=== PATIENT | female | born 1985 | race Asian ===

== ENCOUNTER 2016-10-18 02:12 | Observation (INO) | payer OTHER ==
[2016-10-18] VITALS (7 sets, daily range): BP systolic 79–87; BP diastolic 48–55; PULSE 66–78; TEMP 36.4–36.8; O2SAT 98–100; Ht 160 cm; Wt 50.0 kg
[~2016-10-18] VITALS: Ht 160 cm; Wt 50.0 kg
[~2016-10-18 02:12] MED LIST: ESOM1CAP34 PO; ONDA4TAB7 SL
[2016-10-18] MEDS ORDERED: KETOROLAC TROMETHAMINE 30 MG/ML VIAL IV STA (02:34)
[2016-10-18] MEDS ORDERED: SODIUM CHLORIDE 0.9% 1000ML 1,000 ML IV STA ×2 (02:34→04:33)
[2016-10-18] MEDS ORDERED: ONDANSETRON INJ 2 MG/ML 2 ML VIAL IV STA (02:34)
[2016-10-18 02:45] LABS: BASO % 0.1 %; BASO ABS # 0.02 K/uL (0-0.2); COMPLETE YES; EOS % 0.5 %; HEMATOCRIT 37.7 % (37-47); IG% 0.3 %; LYMPH % 7.8 %; LYMPH ABS # 1.15 K/uL (1.2-3.4); MEAN CELL VOLUME 91.3 fL (80-100); MEAN CORPUSCULAR HEMOGLOBIN 31.5 pg (25-34); MEAN CORPUSCULAR HGB CONC 34.5 g/dl (32-36); MEAN PLATELET VOLUME 9.8 fL (7.4-10.4); MONO % 5.7 %; NEUT % 85.6 %; PLATELET COUNT 289 K/uL (130-400); RED BLOOD COUNT 4.13 M/uL (4.2-5.4); WHITE BLOOD COUNT 14.66 K/uL (4.8-10.8)
[2016-10-18] MEDS ORDERED: OPTIRAY 320 IV PRN (02:45)
[2016-10-18 02:50] LABS: URINE APPEARANCE CLEAR (CLEAR); URINE BILIRUBIN NEG (NEG); URINE COLOR YELLOW; URINE EPITHELIAL CELL AUTO >30 /lpf (0-5); URINE NITRITE NEG (NEG); URINE SPECIFIC GRAVITY 1.024 (1.000-1.030); UROBILINOGEN NEG (NEG); ZZUR CULT IF INDIC CLEAN CATCH NO
[2016-10-18 02:51] LABS: PREG INTERNAL NEGATIVE QC NEG CLEAR BACKGROUND; PREG INTERNAL POSITIVE QC POS CONTROL LINE
[2016-10-18] MEDS ORDERED: ASCO250T4 PO (02:51)
[2016-10-18 02:55] LABS: MANUAL MICROSCOPIC REQUIRED? NO; REVIEW REQ? NO
[2016-10-18 03:04] LABS: BUN/CREATININE RATIO 22.2 (10-20); CALCIUM 8.5 mg/dl (8.5-10.1); CREATININE 0.71 mg/dl (0.60-1.20); POTASSIUM 3.5 mmol/L (3.5-5.1)
[2016-10-18] MEDS ORDERED: LACTATED RINGER'S 1000ML 1,000 ML IV SCH ×2 (06:18→08:00)
--- NOTE | 2016-10-18 06:23 | EMERGENCY ROOM VISIT NOTE ---
History Report prepared by Yaima: Delio Curran Under the Supervision of: Cindy IslasO. First contact with patient: 02:22 Chief Complaint: ABDOMINAL PAIN Stated Complaint: LOWER ABDOMINAL PAIN History of Present Illness The patient is a 31 year old female who presents to the Emergency Room with complaints of constant left lower abdominal pain starting 2100 tonight. The patient states that she has never had anything like this before. She states that her last bowel movement was last night, and she has no history of diverticulitis. The patient states that she is currently on her period, and it has been different than usual. She states that her period has been on and off for about a week now which is unusual. The patient additionally states that she has a history of an appendectomy. She states that her last normal menstrual period was around September 08. Pt denies headache, change in vision, fevers, chest pain, shortness of breath, nausea, vomiting, diarrhea, pain with urination , and melena. Source of History: patient Onset: 2030 Position: abdomen (LLQ) Timing: constant Associated Symptoms: No urinary symptoms Note: Associated symptoms: Abnormal period Review of Systems See HPI for pertinent positives & negatives. A total of 10 systems reviewed and were otherwise negative. Past Medical & Surgical Medical Problems: (1) Ruptured left tubal ectopic causing hemoperitoneum Surgical Problems: (1) History of appendectomy Family History Patient reports no known family medical history. Social History Smoking Status: Never Smoker Marital Status: Housing Status: lives with family Occupation Status: employed Current/Historical Medications Scheduled Ascorbic Acid (Vitamin C), 250 MG PO DAILYBB Scheduled PRN Oxycodone/Acetaminophen 5MG/325MG (Percocet 5MG/325MG), 1-2 TAB PO Q4H PRN for DIETRICH, Cramping, edema Allergies Coded Allergies: No Known Allergies (Unverified , 10/18/16) Physical Exam Vital Signs Date Time Temp Pulse Resp B/P Pulse Ox O2 Delivery O2 Flow Rate FiO2 10/18/16 05:30 76 20 85/52 99 Room Air 10/18/16 04:30 76 20 82/50 97 Room Air 10/18/16 02:15 36.8 95 20 92/66 98 Room Air Physical Exam GENERAL: Sitting up in bed, disheveled, no distress, non-toxic EYE EXAM: normal conjunctiva, PERRL and EOM's grossly intact OROPHARYNX: mucous membranes are moist NECK: supple, no nuchal rigidity, no adenopathy, non-tender LUNGS: Clear to auscultation. Normal chest wall mechanics HEART: no murmurs, S1 normal and S2 normal ABDOMEN: tenderness in the left lower quadrant. Abdomen soft, normo-active bowel sounds, no masses, no rebound or guarding. Pelvic: Normal external genitalia, normal vaginal mucosa with dark blood in the vaginal vault. Unable to visualize the cervix. BACK: Back is symmetrical on inspection and there is no deformity, no midline tenderness, no CVA tenderness. SKIN: no rashes and no bruising UPPER EXTREMITIES: upper extremities are grossly normal. LOWER EXTREMITIES: No pitting edema. NEURO EXAM: Normal sensorium, cranial nerves II-XII grossly intact, normal speech, no gross weakness of arms, no gross weakness of legs. Gross sensation intact Medical Decision & Procedures ER Provider Diagnostic Interpretation: US results have been interpreted by the radiologist and reviewed by me. US OB 1st TRIMESTER: No intrauterine gestational sac is seen. Complex mass in the left adnexa, which appears discrete from the left ovary, measuring 6.3 cm with peripheral vascularity, suspicious for ectopic . In addition, moderate amount of complex free fluid in the pelvis which is concerning for ruptured ectopic. Bilateral intraovarian flow is present. Thickened endometrium. Tiny rounded foci at the uterine fundus, possible fibroids. Laboratory Results 10/18/16 02:34 Red Blood Count 4.13, Mean Corpuscular Volume 91.3, Mean Corpuscular Hemoglobin 31.5, Mean Corpuscular Hemoglobin Concent 34.5, Mean Platelet Volume 9.8, Neutrophils (%) (Auto) 85.6, Lymphocytes (%) (Auto) 7.8, Monocytes (%) (Auto) 5.7, Eosinophils (%) (Auto) 0.5, Basophils (%) (Auto) 0.1, Neutrophils # (Auto) 12.53, Lymphocytes # (Auto) 1.15, Monocytes # (Auto) 0.84, Eosinophils # (Auto) 0.07, Basophils # (Auto) 0.02 10/18/16 02:34 Test 10/18/16 02:34 10/18/16 02:35 White Blood Count 14.66 K/uL (4.8-10.8) Red Blood Count 4.13 M/uL (4.2-5.4) Hemoglobin 13.0 g/dL (12.0-16.0) Hematocrit 37.7 % (37-47) Mean Corpuscular Volume 91.3 fL (80-100) Mean Corpuscular Hemoglobin 31.5 pg (25-34) Mean Corpuscular Hemoglobin Concent 34.5 g/dl (32-36) Platelet Count 289 K/uL (130-400) Mean Platelet Volume 9.8 fL (7.4-10.4) Neutrophils (%) (Auto) 85.6 % Lymphocytes (%) (Auto) 7.8 % Monocytes (%) (Auto) 5.7 % Eosinophils (%) (Auto) 0.5 % Basophils (%) (Auto) 0.1 % Neutrophils # (Auto) 12.53 K/uL (1.4-6.5) Lymphocytes # (Auto) 1.15 K/uL (1.2-3.4) Monocytes # (Auto) 0.84 K/uL (0.11-0.59) Eosinophils # (Auto) 0.07 K/uL (0-0.5) Basophils # (Auto) 0.02 K/uL (0-0.2) RDW Standard Deviation 42.8 fL (36.4-46.3) RDW Coefficient of Variation 12.7 % (11.5-14.5) Immature Granulocyte % (Auto) 0.3 % Immature Granulocyte # (Auto) 0.05 K/uL (0.00-0.02) Anion Gap 10.0 mmol/L (3-11) Est Creatinine Clear Calc Drug Dose 90.4 ml/min Estimated GFR () 129.7 Estimated GFR (Non- 111.9 BUN/Creatinine Ratio 22.2 (10-20) Calcium Level 8.5 mg/dl (8.5-10.1) Total Bilirubin 0.9 mg/dl (0.2-1) Direct Bilirubin 0.2 mg/dl (0-0.2) Aspartate Amino Transf (AST/SGOT) 15 U/L (15-37) Alanine Aminotransferase (ALT/SGPT) 22 U/L (12-78) Alkaline Phosphatase 30 U/L (45-117) Total Protein 6.9 gm/dl (6.4-8.2) Albumin 3.5 gm/dl (3.4-5.0) Lipase 171 U/L (73-393) Urine Color YELLOW Urine Appearance CLEAR (CLEAR) Urine pH 7.0 (4.5-7.5) Urine Specific Mineral 1.024 (1.000-1.030) Urine Protein NEG (NEG) Urine Glucose (UA) NEG (NEG) Urine Ketones NEG (NEG) Urine Occult Blood 3+ (NEG) Urine Nitrite NEG (NEG) Urine Bilirubin NEG (NEG) Urine Urobilinogen NEG (NEG) Urine Leukocyte Esterase TRACE (NEG) Urine WBC (Auto) 1-5 /hpf (0-5) Urine RBC (Auto) >30 /hpf (0-4) Urine Hyaline Casts (Auto) 1-5 /lpf (0-5) Urine Epithelial Cells (Auto) >30 /lpf (0-5) Urine Bacteria (Auto) NEG (NEG) Urine Test POS (NEG) Human Chorionic Gonadotropin, Quant 2531 mIU/mL Laboratory results per my review. Medications Administered Medications (Trade) Dose Ordered Sig/Shahrzad Route Start Time Stop Time Status Last Admin Dose Admin Sodium Chloride (Nss 1000ml) 1,000 ml @ 999 mls/hr Q1H1M STAT IV 10/18/16 02:34 10/18/16 03:34 DC 10/18/16 02:52 999 MLS/HR Ondansetron HCl (Zofran Inj) 4 mg NOW STAT IV 10/18/16 02:34 10/18/16 02:35 DC 10/18/16 02:52 4 MG Ketorolac Tromethamine 30 mg 30 mg NOW STAT IV 10/18/16 02:34 10/18/16 02:35 DC 10/18/16 02:53 30 MG Sodium Chloride (Nss 1000ml) 1,000 ml @ 999 mls/hr Q1H1M STAT IV 10/18/16 04:33 10/18/16 05:33 DC 10/18/16 04:38 999 MLS/HR ED Course ED COURSE: Vital signs were reviewed and showed hypotension The patients medical record was reviewed The above diagnostic studies were performed and reviewed. ED treatments and interventions as stated above. 0229: The patient was evaluated in room B5. A complete history and physical examination was performed. 0234: Toradol Inj 30mg IV, Zofran Inj 4mg IV, Sodium Chloride 1000 ml @ 999 mls/ hr IV 0432: Upon review of the patient's chart, her blood pressure ranges systolically from 80-102 from during [id number] 0433: Sodium Chloride 1000 ml @ 999 mls/hr IV 0533: I discussed the patient's case with Dr. Henley, RACE ENGINE BUILDER. He is going to evaluate the patient for further treatment 0535: Upon reevaluation, the patient is resting.I discussed my findings with the patient and she understands and agrees with the treatment plan. Based on the patients age, coexisting illnesses, exam and lab findings the decision to treat as an inpatient was made. The patient remained stable while under my care. The patient will be evaluated for further management. 0550: I reevaluated the patient, and Dr. Henley was at bedside. Medical Decision Differential diagnoses includes but is not limited to gastritis, peptic ulcer disease, GERD, gallbladder disease, pancreatitis, small bowel obstruction, acute coronary syndrome, pericarditis, ischemic bowel, irritable bowel disease, irritable bowel syndrome, appendicitis, diverticulitis, malignancy, hernia, urinary tract infection, torsion, /ectopic , perforation, trauma, infectious. Patient is a 31-year-old female who presents the ER for left lower quadrant abdominal pain. Labs and old child were obtained. Urine was positive. Ultrasound shows free fluid in the pelvis associated with 6 cm mass separate to left ovary. Her vitals showed that she was hypotensive. Upon presentation systolic blood pressures were in the 90s dropped into the 80s. Her heart rate was never tachycardic. Upon review of her previous presentations systolic blood pressures were always in the 90s. Hemoglobin was 13. She was given 2 L normal saline. RACE ENGINE BUILDER was called immediately following ultrasound results. Patient remained hemodynamic stable in the ER. She was typed and crossed. She was not given RhoGAM in the ER has that type and cross was pending. Patient and family were updated at bedside. Patient was taken to the OR by BEAM WORKER. Consults Time Called: 530 Consulting Physician: Dr. Henley, RACE ENGINE BUILDER Returned Call: 532 I discussed the patient's case with Dr. Henley, RACE ENGINE BUILDER. He is going to evaluate the patient for further treatment Impression Primary Impression: Ruptured left tubal ectopic causing hemoperitoneum Scribe Attestation The scribe's documentation has been prepared under my direction and personally reviewed by me in its entirety. I confirm that the note above accurately reflects all work, treatment, procedures, and medical decision making performed by me. Departure Information Dispostion Being Evaluated By Hospitalist Prescriptions Oxycodone/Acetaminophen 5MG/325MG (PERCOCET 5MG/325MG) Tab 1-2 TAB PO Q4H Y for DIETRICH, Cramping, edema for 7 Days, #30 TAB PAIN Prov: Margo Shepard, D.O. 10/18/16 Referrals Diana Romo DO (PCP)
[2016-10-18] MEDS ORDERED: BUPIVACAINE 0.5 % 5 MG/1 ML MPF 30ML VIAL ONE (06:29)
[2016-10-18] MEDS ORDERED: FENTANYL CITRATE INJ 50 MCG/1 ML 2 ML VIAL ONE ×2 (06:30)
[2016-10-18] MEDS ORDERED: MIDAZOLAM HCL 1 MG/ML 2ML VIAL ONE (06:32)
--- NOTE | 2016-10-18 06:43 | HISTORY & PHYSICAL EXAMINATION ---
DATE OF ADMISSION: 10/18/2016 ADMITTING DIAGNOSES: Probable ruptured ectopic . ADMISSION HISTORY: The patient is a 31-year-old 3, para 2, at approximately 5 weeks gestational age, who presented to the Emergency Room with left lower quadrant pain. The patient states that the pain began at approximately 9:00 p.m. the evening prior to presentation and increased in intensity. She denies nausea or vomiting. The patient states that she was approximately a week late for her period and that her breasts were more tender. The patient is sexually active, not using any form of contraception. In the Emergency Room, the patient had a positive test and ultrasound showed findings consistent with a ruptured ectopic and I have been asked to see the patient in consultation. The patient has had 2 previous uneventful vaginal deliveries in 2002 and 2010. She had an appendectomy done in 2012. PAST MEDICAL HISTORY: OBSTETRICAL: As above. GYNECOLOGICAL: As above. MEDICAL: Mild reactive airways disease. SURGICAL: As above. ALLERGIES: No known drug allergies. SOCIAL HISTORY: No smoking. FAMILY HISTORY: Noncontributory. REVIEW OF SYSTEMS: As per HPI. ADMISSION PHYSICAL EXAMINATION: GENERAL: Shows an female, uncomfortable, but in no acute distress. VITAL SIGNS: Show blood pressure of 92/66 and a pulse of 76. HEENT: Unremarkable. NECK: Supple. LUNGS: Clear. HEART: With a regular rhythm and rate. ABDOMEN: Tender in left lower quadrant with guarding and rebound, diminished bowel sounds. PELVIC: Shows normal external genitalia. Vaginal vault is pink and rugated. There is blood in the posterior fornix. Cervix is multiparous and closed with positive cervical motion tenderness. On bimanual exam, there is marked left adnexal tenderness with a suboptimal examination, secondary to patient guarding. RECTAL: Confirmatory. EXTREMITIES: Shows no deep calf tenderness. NEUROLOGIC: Grossly intact. IMPRESSION: A 31-year-old 3, para 2, AB 1, with probable ruptured ectopic . PLAN: The diagnosis has been explained to the patient and the need for operative intervention has been discussed. Plan a laparoscopic approach with evacuation of probable hemoperitoneum and decision on whether or not any of the adnexal structures can be preserved or removal of the left tube. The risks, benefits and alternatives to the surgery have been discussed. While the benefits will be the treatment of ectopic , the risks are bleeding, infection, inadvertent injury to bowel or bladder or failure to be able to complete the surgery laparoscopically and the need for an open procedure. The patient understands. Permit has been signed, if she wishes to proceed.
[2016-10-18] MEDS ORDERED: IV FLUIDS COMPLETED PRN (06:45)
[2016-10-18] MEDS ORDERED: LIDOCAINE HCL 2% 2 ML VIAL (20MG/ML) ONE (07:23)
[2016-10-18] MEDS ORDERED: PROPOFOL IV EMULSION 10 MG/ML 20 ML VIAL IV ONE (07:23)
[2016-10-18] MEDS ORDERED: ROCURONIUM BROMIDE 10 MG/ML 5 ML VIAL ONE (07:24)
[2016-10-18] MEDS ORDERED: ONDANSETRON INJ 2 MG/ML 2 ML VIAL ONE (07:24)
[2016-10-18] MEDS ORDERED: GLYCOPYRROLATE INJ 0.2 MG/ML VIAL ONE ×2 (07:25)
[2016-10-18] MEDS ORDERED: NEOSTIGMINE METHYLSULFATE 5 MG/5 ML SYR ONE (07:25)
--- NOTE | 2016-10-18 07:33 | DIAGNOSTIC IMAGING REPORT ---
EXAMINATION: PELVIC ULTRASOUND CLINICAL HISTORY: ll. Abd pain PAIN COMPARISON STUDY: 10/04/2010 FINDINGS: The uterus measured 10 cm maximum linear dimension. Several small uterine fibroids measuring up to 1.5 cm. Endometrial thickening at 1.3 cm. No well-defined intrauterine gestational sac. . The endometrial stripe measured 1.3 cm at maximum. The right ovary measured 4 cm maximum linear dimension. Normal vascular flow. The left ovary measured 6.3 cm. complex. Surrounding free and/or slightly complex fluid. Possibility of an ectopic is considered.. There is no ultrasonographic evidence of ovarian torsion. It should be noted that ovarian torsion can be present with normal Doppler ultrasonographic findings. IMPRESSION: 1. No evidence for an intrauterine gestational sac. 2. Enlarged masslike appearance to the left ovary with a maximum dimension of 6 cm. Enhancement of peripheral increase in vascularity. 3. Possibility of an ectopic with a potential partial rupture must be considered Electronically signed by: Kenney Bailey M.D. 10/18/2016 7:32 AM Dictated Date/Time: 10/18/2016 7:18 AM
[2016-10-18] MEDS ORDERED: ONDANSETRON INJ 2 MG/ML 2 ML VIAL IV PRN ×2 (07:45→08:00)
[2016-10-18] MEDS ORDERED: HYDROmorphone INJ 1 MG/ML SYR IV PRN (07:45)
[2016-10-18] MEDS ORDERED: PROMETHAZINE HCL INJ 6.25 MG in SODIUM CHLORIDE 0.9% 50ML 50 ML IV PRN (07:45)
[2016-10-18] MEDS ORDERED: EpHEDrine SULFATE INJ 50 MG/ML AMP IV PRN (07:45)
[2016-10-18] MEDS ORDERED: FENTANYL CITRATE INJ 50 MCG/1 ML 2 ML VIAL IV PRN (07:45)
[2016-10-18] MEDS ORDERED: ATROPINE SULFATE 0.1 MG/ML 5ML SYR IV PRN (07:45)
[2016-10-18] MEDS ORDERED: KETOROLAC TROMETHAMINE 30 MG/ML VIAL ONE (07:50)
[2016-10-18] MEDS ORDERED: OXYCODONE/ACETAMINOPHEN 5-325 TAB PO PRN (08:00)
[2016-10-18] MEDS ORDERED: MEPERIDINE HCL 50 MG/ML CARP IV PRN (08:00)
[2016-10-18] MEDS ORDERED: IBUPROFEN 600 MG TAB PO PRN (08:00)
[2016-10-18] MEDS ORDERED: KETOROLAC TROMETHAMINE 30 MG/ML VIAL IV. PRN (08:00)
[2016-10-18] MEDS ORDERED: MEPERIDINE HCL 75 MG/ML CARP IV PRN (08:00)
--- NOTE | 2016-10-18 08:08 | [facility] Post Operative Brief Note ---
Immediate Operative Summary Operative Date Oct 18, 2016. Pre-Operative Diagnosis Probable Ruptured Ectopic Post-Operative Diagnosis Left Ectopic Procedure(s) Performed Diagnostic Laparoscopy; Left Salpingectomy Surgeon Dr. Rajendra Henley Avionics Integration Engineer Surgeon(s) None Estimated Blood Loss 250ML Findings Large dilated left tube, with bleeding from surface. Normal appearing Right tube and ovary. Left salpingectomy performed Fluids (cc crystalloids) 750 Specimens A. Left Fallopian Tube Drains None Anesthesia General Complication(s) None Disposition Recovery Room / PACU
[2016-10-18] MEDS ORDERED: MEPERIDINE HCL 25 MG/ML CARP ONE (08:35)
[2016-10-18] MEDS ORDERED: NURSING VERBAL MED ORDER ONE (08:45)
--- NOTE | 2016-10-18 08:50 | OPERATIVE REPORT ---
DATE OF OPERATION: 10/18/2016 PREOPERATIVE DIAGNOSIS: Probable ruptured left ectopic . POSTOPERATIVE DIAGNOSIS: Left ectopic . PROCEDURE PERFORMED: 1. Diagnostic laparoscopy. 2. Left salpingectomy. SURGEON: Dr. Henley. ANESTHESIA: General. FINDINGS: Laparoscopic examination of the pelvis showed approximately 250 mL of clotted and unclotted blood in the cul-de-sac and after aspiration the left fallopian tube was markedly dilated and hemorrhagic approximately 6 cm x 4 cm in dimension. While the tube was not ruptured there was some active bleeding from the surface of the tube, necessitating left salpingectomy. Specimen sent for pathological evaluation. PROCEDURE IN DETAIL: The patient was taken to the operating room and after general anesthesia was placed in dorsolithotomy position and draped and prepped in the usual fashion. Luciano catheter was inserted into the bladder which remained there throughout the procedure. A single tooth tenaculum was used to grasp the anterior lip of the cervix. Greasy cannula was inserted into the cervical os and fastened to the tenaculum. Small subumbilical incision was made and Veress needle was introduced into the pelvic cavity which was then insufflated with 3 liters of CO2. Veress needle was removed and sharp trocar was used to introduce the laparoscope. Pelvic organs were visualized with the description as above, a 5 mm suprapubic port was placed and an 11 mm left paramedial port was placed. Pelvis with the description as above. The tube was grasped. Ureter was identified. Using the Harmonic scalpel a left salpingectomy was performed. Specimen was placed in an EndoCatch bag and removed and sent for pathological evaluation. The pelvis was thoroughly irrigated with 500 mL of warm saline. All pedicles were inspected for hemostasis, which was present. The laparoscopic ports were removed under direct laparoscopic guidance. The pneumoperitoneum was allowed to escape. Deep stitches on the 11 mm ports of 0 Vicryl were placed closing the fascia. The skin incisions were closed with 4-0 Vicryl subcuticular stitches. Sterile dressings were applied. Luciano catheter, tenaculum and acorn cannula were removed. The patient taken out of dorsal lithotomy to recovery room in satisfactory condition. I attest to the content of the Intraoperative Record and any orders documented therein. Any exceptio ns are noted below.
--- NOTE | 2016-10-18 08:59 | Anesthesiology Progress Note ---
Anesthesia Post Op Note Date & Time Oct 18, 2016 at 09:00 Vital Signs Pain Intensity: 0 Vital Signs Past 12 Hours Date Time Temp Pulse Resp B/P Pulse Ox O2 Delivery O2 Flow Rate FiO2 10/18/16 08:54 61 15 10/18/16 08:54 60 15 92/55 97 10/18/16 08:49 66 14 85/50 95 10/18/16 08:49 67 14 10/18/16 08:44 64 18 10/18/16 08:44 63 18 94/58 98 10/18/16 08:40 92/46 10/18/16 08:39 95 29 10/18/16 08:39 97 29 96 10/18/16 08:34 71 22 10/18/16 08:34 75 22 92/55 100 10/18/16 08:29 60 16 91/54 100 10/18/16 08:29 59 16 10/18/16 08:24 61 19 93/62 100 10/18/16 08:24 62 19 10/18/16 08:19 86 20 10/18/16 08:19 90 20 88/63 93 10/18/16 08:16 92/62 10/18/16 08:14 87 22 10/18/16 08:14 86 22 10/18/16 08:14 36.7 79 16 92/62 99 Mask 10 10/18/16 06:33 104 20 95/66 98 10/18/16 05:30 76 20 85/52 99 Room Air 10/18/16 04:30 76 20 82/50 97 Room Air 10/18/16 02:15 36.8 95 20 92/66 98 Room Air Notes Mental Status: alert / awake / arousable, participated in evaluation Pt Amnestic to Procedure: Yes Nausea / Vomiting: adequately controlled Pain: adequately controlled Airway Patency, RR, SpO2: stable & adequate BP & HR: stable & adequate Hydration State: stable & adequate Anesthetic Complications: no major complications apparent
[2016-10-18] MEDS ORDERED: OXYC-57 PO (11:59)
--- NOTE | 2016-10-18 12:01 | Discharge Instructions ---
Discharge Instructions Visit Reason for Visit: Ruptured Left Tubal Ectopic Preg. / Hemoperitoneum Discharge Discharge Diagnosis / Problem: s/p left salpingectomy Discharge Goals Goal(s): Therapeutic intervention Activity Recommendations Activity Limitations: per Instructions/Follow-up section Anesthesia . Post Anesthesia Instructions: If you have had General Anesthesia or IV Sedation: * Do not drive today. * Resume driving when surgeon permits. * Do not make important decisions or sign legal documents today. * Call surgeon for: 1. Temperature elevations greater than 101 degrees F. 2. Uncontrollable pain. 3. Excessive bleeding. 4. Persistent nausea and vomiting. 5. Medication intolerance (nausea, vomiting or rash). * For nausea and vomiting use only clear liquids such as: tea, soda, bouillon until nausea subsides, then gradually increase diet as tolerated. * If you have any concerns or questions, call your surgeon's office. If physician is unavailable and it is an emergency, call 911 or go to the nearest emergency room. . Instructions / Follow-Up Instructions / Follow-Up ACTIVITY RECOMMENDATIONS: * Rest the first 2-3 days. You should be back to your normal activity levels by day 3. * No heavy lifting for 2 weeks. * No intercourse, tampons or douching for 1-2 weeks. * You may shower the next day. * Do not drive anytime that you are taking narcotic pain medicines. RETURN TO SCHOOL/WORK: * May return to school or work after 2-3 days. DIET: Nausea may occur in the immediate post-operative period. If so, take clear liquids such as tea, bouillon, apple juice until all nausea has subsided, then resume usual diet. MEDICATIONS: Resume previous medications unless instructed otherwise by your surgeon. Ibuprofen 200mg 2-3 tablets every 4-6 hours as needed -- OR -- Aleve 2 tablets every 8-12 hours as needed for post-operative discomfort Medications are over the counter. Tylenol may be used if above medications are contraindicated or not preferred. Medication should be taken with food or milk. Do not take on an empty stomach. SPECIAL CARE INSTRUCTIONS: * Check temperature twice daily for one week. report any elevation over 101 degrees. * You may experience some vagina spotting and/or bleeding. This is normal for 1 -2 weeks and should not be heavier than a normal period. If it is unusual in amount, call your physician. * Post-operative discomfort may consist of a sore throat, a "bloated" feeling and pain in the shoulders. these are normal symptoms, which usually only last for 2-3 days. * Remove band-aids tomorrow and shower. There is no need to replace band-aids unless there is drainage or discomfort. FOLLOW UP VISIT: Call your doctor's office for a post-operative 2 week visit if not already scheduled. Diet Recommendations Recommended Home Diet: resume previous diet Procedures Procedures Performed: Diagnostic Laparoscopy; Left Salpingectomy Pending Studies Studies pending at discharge: no Medical Emergencies . Who to Call and When: Medical Emergencies: If at any time you feel your situation is an emergency, please call 911 immediately. . Non-Emergent Contact Non-Emergency issues call your: Primary Care Provider, Die Set Up Worker . . "Provider Documentation" section prepared by Margo Shepard.
--- NOTE | 2016-10-18 12:19 | Progress Note ---
Progress Note Date of Service Oct 18, 2016. Progress Note Patient feeling well. Ambulating. Tolerating PO. Urinating ok. Pain well controlled. Would like to go home. Last 8 Hrs Date Time Temp Pulse Resp B/P Pulse Ox O2 Delivery O2 Flow Rate FiO2 10/18/16 10:20 68 16 85/54 100 Room Air 10/18/16 10:13 36.4 78 16 84/53 100 Room Air 10/18/16 09:50 74 16 79/48 100 Room Air 10/18/16 09:20 100 Room Air 10/18/16 09:20 100 Room Air 10/18/16 09:20 36.4 78 16 84/53 100 Room Air 10/18/16 09:08 37.0 10/18/16 09:05 62 15 97 10/18/16 09:05 62 15 10/18/16 09:04 89/50 10/18/16 09:00 68 20 10/18/16 09:00 69 20 97 10/18/16 08:59 87/52 10/18/16 08:55 61 16 10/18/16 08:55 60 16 96 10/18/16 08:54 61 15 10/18/16 08:54 60 15 92/55 97 10/18/16 08:49 66 14 85/50 95 10/18/16 08:49 67 14 10/18/16 08:44 64 18 10/18/16 08:44 63 18 94/58 98 10/18/16 08:40 92/46 10/18/16 08:39 95 29 10/18/16 08:39 97 29 96 10/18/16 08:34 71 22 10/18/16 08:34 75 22 92/55 100 10/18/16 08:29 60 16 91/54 100 10/18/16 08:29 59 16 10/18/16 08:24 61 19 93/62 100 10/18/16 08:24 62 19 10/18/16 08:19 86 20 10/18/16 08:19 90 20 88/63 93 10/18/16 08:16 92/62 10/18/16 08:14 87 22 10/18/16 08:14 86 22 10/18/16 08:14 36.7 79 16 92/62 99 Mask 10 10/18/16 06:33 104 20 95/66 98 3/1/17 05:30 76 20 85/52 99 Room Air 10/18/16 04:30 76 20 82/50 97 Room Air Physical exam: Gen: AAOx3 NAD. Sitting up, eating. Abdomen: soft, NTTP. incision sites bandaged, no bleeding. Ext: no edema, no calf tenderness Will discharge to home. Rx percocet. Discharge instructions discussed, questions answered. JAMEL PDMP checked. Followup with Dr Henley in 2 weeks in office.
[2016-10-19] MEDS ORDERED: ASCORBIC ACID 500 MG TAB PO SCH (07:00)
--- NOTE | 2016-10-19 11:19 | DISCHARGE SUMMARY ---
ADMITTING DIAGNOSIS: Probable ruptured ectopic . DISCHARGE DIAGNOSIS: Left tubal ectopic . PROCEDURES PERFORMED: 1. Diagnostic laparoscopy. 2. Left salpingectomy. DISCHARGE MEDICATION: Percocet 5/325 one to two p.o. q. 4-6 hours p.r.n. pain. ADMISSION HISTORY: The patient is a 31-year-old 3, para 2 at approximately 5 weeks' gestational age, who presented to the Emergency Room on the day of admission with left lower quadrant pain. The patient states the pain began approximately 9:00 p.m. the evening prior to presentation with had increased in intensity. She denied nausea or vomiting. The patient was approximately a week later for her menses and her breasts were more tender. The patient is sexually active and not using any forms of contraception. In the Emergency Room, the patient had a positive test and ultrasound showed the findings consistent with ruptured ectopic . ADMISSION PHYSICAL EXAMINATION: GENERAL: Showed female, uncomfortable, but in no acute distress. VITAL SIGNS: Blood pressure of 92/66 and a pulse of 76. HEENT: Unremarkable. NECK: Supple. LUNGS: Clear. HEART: With a regular rhythm and rate. ABDOMEN: Tender in the left lower quadrant with guarding and rebound. Diminished bowel sounds. PELVIC: Showed normal external genitalia. The vaginal wall is pink and rugated. There is blood in the posterior fornix. Cervix was multiparous and closed with positive cervical motion tenderness. On bimanual examination, there was marked left adnexal tenderness with a suboptimal examination secondary to the patient's guarding. RECTAL: Confirmatory. EXTREMITIES: Showed no deep calf tenderness. NEUROLOGIC: Grossly intact. ADMISSION LABORATORY VALUES: Showed an H\T\H of 13.0 and 37.3. Quantitative hCG of 2500. HOSPITAL COURSE: The patient was felt to have an ectopic and with the pain that she was experiencing, the possibility of rupture was entertained. She was taken to the operating room, where she underwent a diagnostic laparoscopy. Laparoscopic findings showed approximately 250 mL of clotted and unclotted blood in the cul-de-sac. The left fallopian tube was markedly dilated with hemorrhage from the surface, but we had not ruptured. It was approximately 6 x 4 cm in dimension. While the tube was not ruptured, there was some active bleeding from the surface of the tube, necessitating a left salpingectomy. Postoperatively, the patient did well. She was observed for approximately 6 hours postoperatively. She was tolerating a regular diet and was discharged home with the prescriptions for the medications that were listed as above. She will follow up in the office in 2 weeks' time for a postoperative check, but as always she has been instructed to call with any questions, problems or difficulties.
== END 2016-10-18 13:20 | disposition home or self-care (01) ==
LOC: ENRESERVTM → ENRESERVDT → C.EDB 02:13 → C.OR 06:18 → C.MS4N 06:22 → C.OR 06:37
PROVIDERS: ADMIT Obstetrics & Gynecology; ATTEND Obstetrics & Gynecology
DX: O08.0 Genital tract and pelvic infection following ectopic and molar pregnancy (principal); O08.1 Delayed or excessive hemorrhage following ectopic and molar pregnancy; N83.8 Other noninflammatory disorders of ovary, fallopian tube and broad ligament; Z3A.01 Less than 8 weeks gestation of pregnancy

== ENCOUNTER 2021-08-22 01:59 | Inpatient (IN) ==
[2021-08-22] MEDS ORDERED: LACTATED RINGER'S 1,000 ML IV PRN (02:19)
[2021-08-22] MEDS ORDERED: OXYTOCIN 30 UNITS/500 ML BAG IV PRN ×2 (02:19→03:32)
[2021-08-22 02:40] LABS: Hematocrit (blood only) 35.2 % (37-47); Hemoglobin 11.2 g/dL (12.0-16.0); Mean Corpuscular Hemoglobin 26.5 pg (25-34); Mean Corpuscular Hgb Conc 31.8 g/dL (32-36); Mean Corpuscular Volume 83.2 fL (80-100); Mean Platelet Volume 9.1 fL (7.4-10.4); Platelet Count 469 K/uL (130-400); RDW Coefficient of Variation 14.9 % (11.5-14.5); RDW Standard Deviation 45.3 fL (36.4-46.3); Red Blood Count 4.23 M/uL (4.2-5.4); White Blood Count 12.99 K/uL (4.8-10.8)
[2021-08-22] MEDS ORDERED: SODIUM CHLORIDE 0.9% INJ 10 ML VIAL ONE (02:56)
[2021-08-22] MEDS ORDERED: ePHEDrine sulfate 50 MG/ML AMP ONE (02:56)
[2021-08-22] MEDS ORDERED: fentaNYL citrate 100 MCG/2 ML VIAL ONE (02:56)
[2021-08-22] MEDS ORDERED: BUPIVACAINE 0.25% 30 ML VIAL ONE (02:56)
[2021-08-22] MEDS ORDERED: fentaNYL 2MCG/ML ROPIVACAINE 1.25MG/ML 100 ML BAG EPI ONE (02:57)
--- NOTE | 2021-08-22 03:08 | Anesthesiology Consultation ---
Date of Service August 22, 2021 History Height/Weight Height: 5 ft 3 in Weight: 66.224 kg Allergies Allergy/AdvReac Type Severity Reaction Status Date / Time No Known Allergies Allergy Verified 08/16/21 08:25 Medications Home Medications Medication Instructions Recorded Confirmed Last Taken prenat.vits,gerardo,[id number] 1 tab PO DAILY 12/31/20 08/16/21 03/03/21 blood sugar diagnostic (OneTouch #150 ea 04/22/21 08/16/21 Unknown Verio test strips) lancets 33 gauge (OneTouch Delica #150 ea 04/22/21 08/16/21 Unknown Plus Lancet) acetone (urine) test (Ketone Urine #50 ea 05/12/21 08/16/21 Unknown Test) Past Medical History Medical History Asthma Dyslipidemia History of chicken pox Hyperglycemia Past Family History Family History Denies family history of Ovarian cancer Breast cancer Colorectal cancer Uterine cancer Past Surgical History Surgical History H/O laparoscopy L salpingectomy for ectopic History of appendectomy Social History Smoking Status: Never smoker Do You Dip or Chew Tobacco: No Hx Alcohol Use: Yes Hx Substance Use: No substance use type: does not use Physical Exam Vital Signs Last Vital Signs Temp 36.7 C 08/22/21 02:27 Pulse 104 H 08/22/21 02:52 Resp 18 08/22/21 02:27 BP 152/83 H 08/22/21 02:19 Pulse Ox 99 08/22/21 02:52 Testing Laboratory Results 08/22/21 02:31 08/22/21 02:26 POC Glucose 109 H
[2021-08-22] MEDS ORDERED: LIDOCAINE 1% LOCAL 20 ML VIAL ONE (03:16)
[2021-08-22] MEDS ORDERED: SUPERCREAM 0.870% 15 GM JAR EXT PRN (03:32)
[2021-08-22] MEDS ORDERED: HYDROCORTISONE ACETATE 25 MG SUPP PR PRN (03:32)
[2021-08-22] MEDS ORDERED: IBUPROFEN 600 MG TAB PO PRN (03:32)
[2021-08-22] MEDS ORDERED: bisacodyL 10 MG SUPP PR PRN (03:32)
[2021-08-22] MEDS ORDERED: DIPHTHERIA/TETANUS/PERTUSSIS 0.5 ML SYR/VIAL IM ONE (03:32)
[2021-08-22] MEDS ORDERED: ACETAMINOPHEN 325 MG TAB PO PRN (03:32)
[2021-08-22] MEDS ORDERED: BENZOCAINE 20% AER SPR 82.5 GM CAN EXT PRN (03:32)
--- NOTE | 2021-08-22 03:35 | History & Physical Report ---
Date of Service August 22, 2021 Assessment & Plan (1) Normal labor: Plan: admit. attempt epidural. fetus reassuring. anticipate . gbs neg. Admission and Anticipated Discharge Date Admission Date: August 22, 2021 History of Present Illness Chief Complaint: contractions Primary Care Provider: Uche Dianne Romo Patient is a af at 38 5/7 weeks who called me at 1:30 am noting contractions that had been every 5 min since 10pm. She was breathing though them. Advised to come to labor and delivery zee. and Delivery Plans AMA Weekly NST's @36 weeks GDM w/16wk glucola *Begin monthly AC Us's @24wks Had Pfizer vaccine, last shot Jun 20. OB Labs: Blood Type A Positive 02/08/21 Antibody Screen NEGATIVE 02/08/21 Hemoglobin 11.1 g/dL (12.0-16.0) L 06/24/21 Hematocrit 34.4 % (37-47) L 06/24/21 Mean Corpuscular Volume 92.2 fL (80-100) 03/03/21 Platelet Count 347 K/uL (130-400) 03/03/21 Rubella IgG Antibody Immune (Immune) 02/08/21 Rapid Plasma Reagin Nonreactive (Nonreactive) 02/08/21 Hepatitis B Surface Antigen Neg (Neg) 02/08/21 HIV (1&2) Ab and P24 Ag, 4th Gener Neg (Neg) 02/08/21 Glucose 1 Hour 50 gm Load 174 mg/dl (70-130) H 03/17/21 OB Optional Labs: Chlamydia trachomatis RNA NOT DETECTED (NOT DETECTED) 01/21/21 Neisseria gonorrhoeae RNA NOT DETECTED (NOT DETECTED) 01/21/21 Labs Reviewed: Normal cfDNA Normal CF/SMA declines AFP Allergies Allergy/AdvReac Type Severity Reaction Status Date / Time No Known Allergies Allergy Verified 08/16/21 08:25 Home Medications Medication Instructions Recorded Confirmed Type prenat.vits,gerardo,[id number] 1 tab PO DAILY 12/31/20 08/16/21 History blood sugar diagnostic (OneTouch #150 ea 04/22/21 08/16/21 Rx Verio test strips) lancets 33 gauge (OneTouch Delica #150 ea 04/22/21 08/16/21 Rx Plus Lancet) acetone (urine) test (Ketone Urine #50 ea 05/12/21 08/16/21 Rx Test) Patient History Medical History Asthma Dyslipidemia History of chicken pox Hyperglycemia Surgical History H/O laparoscopy L salpingectomy for ectopic History of appendectomy Family History Denies family history of Ovarian cancer Breast cancer Colorectal cancer Uterine cancer Social History Smoking Status: Never smoker Second Hand Exposure: No; Do You Dip or Chew Tobacco: No; Tobacco Cessation Education Requested by Patient: No Hx Alcohol Use: No Hx Substance Use: No Preferred Language: Azeri Communication Ability: Effective Medical Lab Assistant Required: No Beliefs That Will Affect Care: None marital status: marital status details: FOB: [birth year] Current Living Situation: Spouse and Family Current Living Situation Comment: spouse and two daughters current occupational status: employed current occupation: [employer] Other Information That Helps Us Care for You: No Feels Safe at Home: Yes Safety Concerns: Feels Safe At This Time Assistive Devices: None OB History Del. Date GA wks Lbr Lgth wt Sex Type del Anes Place Del Prov ? Comment 03/02/03 12 6-10 F None Oth er [place] none- unknown gestational age at delivery 05/12/11 36 F Epidural [facility] Dr Marroquin No 10/18/16 5 Ectopic [employer] History noncontributory Physical Exam Constitutional: WD/WN, vitals as above Gastrointestinal (Abdomen): soft, gravid, nt Psychiatric: A+Ox3, euthymic affect Genitourinary: cx--6/100/bulging bag per nursing. toco--q2-3min efm--150s with min to mod variaiblity, small accels, no decels Results & Data ([facility]) Vital Signs (Past 12 Hours) Vital Signs Temp Pulse Resp BP Pulse Ox 08/22/21 03:24 113 H 115/63 08/22/21 02:52 104 H 99 08/22/21 02:27 36.7 C 18 08/22/21 02:19 113 H 152/83 H Coding Level of Care Code None Diagnoses Normal labor O80; Z37.9
--- NOTE | 2021-08-22 03:46 | Delivery Summary ---
Vaginal Delivery Summary Date of Service August 22, 2021 Vaginal Delivery Summary and 2nd Degree LAC Pre-operative Diagnosis: at 38 5/7 weeks active labor Post-operative Diagnosis: same srom for thick mec precipitious delivery Procedure: repair of second degree laceration EBL: 300cc Anesthesia: local infiltration of lidocaine Procedure: The patient presented at 6 cm. She hesitated and then decided she wanted an epidural. Was checked prior to sitting up and was 8 cm. Shortly after sitting up , her water broke for thick meconium. She began involuntarily pushing. She was then discovered to be +4 with head visible. I was in house and called. When I arrived to the room the fetus was and a nurse had her hand over the head preventing it from being delivered. The patient pushed to deliver a viable female in blue position. The nose and mouth were bulb suctioned on the perineum and the rest of the infant was then delivered without difficulty. The baby was vigorous. The nose and mouth were again bulb suctioned and the was placed in the maternal abdomen for drying and attention. Cord was clamped and cut at a little over one minute of life. Cord blood and segment obtained. Placenta delivered spontaneous, intact with a three vessel cord. Cervix/sulci/rectum were intact. A second degree perineal laceration was repaired in the normal standard fashion. Hemostasis obtained with dilute pitocin and fundal massage. Apgars were 8/9. Mother and baby doing well at the end of the delivery. [facility] [place] Vaginal Delivery Charge Delivery Type Details: and 2nd Degree LAC
[2021-08-22] MEDS: PRENATAL VITAMIN 1 TAB PO SCH (10:47)
[2021-08-22] MEDS: DOCUSATE SODIUM 100 MG CAP PO SCH ×2 (10:47→20:31)
[2021-08-22 15:43] LABS: Hematocrit (blood only) 30.3 % (37-47); Hemoglobin 9.7 g/dL (12.0-16.0)
[2021-08-23 06:19] LABS: Hematocrit (blood only) 31.4 % (37-47); Hemoglobin 9.9 g/dL (12.0-16.0)
--- NOTE | 2021-08-23 06:46 | Obstetrical Progress Note ---
Date of Service <Salvador Johnson MD - Last Filed: 08/23/21 07:42> August 23, 2021 Assessment & Plan <Salvador Johnson MD - Last Filed: 08/23/21 07:42> (1) Encounter for care and examination after delivery: PPD 1: stable, routine management * patient voiding and ambulating without difficulty * pain controlled on analgesia * tolerating regular diet * breast feeding * anticipate d/c today * 6-week OB outpatient follow-up <Margo Shepard DO - Last Filed: 08/23/21 07:54> (1) Encounter for care and examination after delivery: Subjective <Salvador Johnson MD - Last Filed: 08/23/21 07:42> Esperanza is a 35-year-old who is now PPD #1 following spontaneous vaginal delivery at 38 weeks. Reports feeling well overall this morning. Some abdominal cramping & 5/10 pain well managed on analgesics. Voiding well. Tolerating meals well and able to ambulate without difficulty. Denies passing gas or having bowel movements. Some persistent lochia with some improvement this morning. . Review of Systems Denies fever, chills, sweats Denies shortness of breath, difficulty breathing, chest pain, palpitations, chest pressure. Denies breast pain. Denies dysuria. Reports headache but denies changes in vision Physical Exam <Salvador Johnson MD - Last Filed: 08/23/21 07:42> General: Alert, oriented. No acute distress. Cardiac: Regular rate and rhythm, no murmurs/rubs/gallops. Respiratory: Clear to auscultation bilaterally a/p, no wheezes/rales/rhonchi. No increased work of breathing. Symmetrical chest rise. No respiratory distress. Abdomen: Soft, nontender, nondistended. Bowel sounds present. Uterus: Uterine fundus firm, palpable at the umbilicus. Lower Extremities: No lower extremity edema or swelling. No deep calf pain. Tayo's negative bilaterally.. Results & Data ([facility]) <Salvador Johnson MD - Last Filed: 08/23/21 07:42> Vital Signs (Past 12 Hours) Vital Signs Temp Pulse Resp BP Pulse Ox 08/23/21 03:05 36.8 C 76 18 97/66 L 08/23/21 00:00 37 C 78 18 97/62 L 08/22/21 20:15 37.1 C 93 H 18 92/61 L 98 <Margo Shepard DO - Last Filed: 08/23/21 07:54> Co-Signing Physician Notes Resident Physician Supervision Note: I was present with Dr. Johnson during the history and exam. I discussed the case with the resident and agree with the findings and plan as documented in the note. Any exceptions or clarifications are listed here: PPD#1 doing well, desires discharge home. DC instructions reviewed, plans for followup in office in 6w. Documented By: Margo Shepard DO Resident Activity Tracking <Salvador Johnson MD - Last Filed: 08/23/21 07:42> Resident Involvement: Resident Care Provided Care Provided: OB Delivery
[2021-08-23] MEDS: DOCUSATE SODIUM 100 MG CAP PO SCH (08:32)
[2021-08-23] MEDS: PRENATAL VITAMIN 1 TAB PO SCH (08:32)
[2021-08-23] MEDS ORDERED: bisacodyL 5 MG TABEC PO SCH (20:00)
== END 2021-08-23 14:20 | disposition home or self-care (01) | DRG 807 ==
LOC: OPB 01:59 → 4S1 02:05 → 4S2 05:45